=== PATIENT | female | born 1985 | race Caucasian/White ===

== ENCOUNTER 2020-11-03 15:30 | Inpatient (IN) | payer OTHER ==
[~2020-11-03] VITALS: Ht 162.6 cm; Wt 74.4 kg
[~2020-11-03 15:30] MED LIST: PRENATAL 19 TA1 EACH PO
== END 2020-11-10 11:13 | disposition home or self-care (01) | DRG 807 ==
LOC: LDR 11-08 10:50 → OB/GYN 11-08 10:50 → LDR 11-08 13:19 → OB/GYN 11-08 14:13
PROVIDERS: ADMIT Obstetrics & Gynecology; ATTEND Obstetrics & Gynecology Maternal & Fetal Medicine
PROC: 10E0XZZ Delivery of Products of Conception, External Approach (ICD-10-PCS; principal; 2020-11-08)
PROC: 0KQM0ZZ Repair Perineum Muscle, Open Approach (ICD-10-PCS; 2020-11-08)
PROC: 4A1HXFZ Monitoring of Products of Conception, Cardiac Rhythm, External Approach (ICD-10-PCS; 2020-11-08)
DX: O70.1 Second degree perineal laceration during delivery (principal); Z37.0 Single live birth; Z3A.38 38 weeks gestation of pregnancy; Z20.822 Contact with and (suspected) exposure to COVID-19

== ENCOUNTER 2020-11-07 12:55 | Outpatient (CLI) | payer OTHER | END 2020-11-07 13:39 | disposition home or self-care (01) | LOC: NST 12:55 | PROVIDERS: ATTEND Obstetrics & Gynecology Maternal & Fetal Medicine | DX: Z34.83 Encounter for supervision of other normal pregnancy, third trimester (principal) ==